=== PATIENT | female | born 1995 | race Caucasian/White ===

== ENCOUNTER 2020-02-25 04:53 | Emergency (ER) | payer OTHER ==
[~2020-02-25] VITALS: Ht 165.1 cm; Wt 59.0 kg
[2020-02-25 05:10] VITALS: BP 127/71
--- NOTE | 2020-02-25 05:10 | NUR ---
ED Nurse Note: pt ambulated into ed from home [place] and generalized body aches 8/ x 2 days with n/v. Pt HR elevated (114), temp 99.1. Other VS within normal limits. Pt states that she has stayed home in quarantine for last 2 months and denies others being sick at home. Pt aao x 4, ambulatory. Pt refused Iv line and blood draw, ERMD aware. Awaiting ERMD at bedside
[2020-02-25] MEDS ORDERED: ADVAIR 250-501 EACH INH (05:15)
[2020-02-25] MEDS ORDERED: MONTELUKAST SOD10 MG ORAL (05:15)
--- NOTE | 2020-02-25 05:20 | NUR ---
ED Nurse Note: xray at bedside. UA and COVID swab sent to lab.
[2020-02-25] MEDS ORDERED: Acetaminophen 500mg (ES) tab ORAL ONE (05:30)
--- NOTE | 2020-02-25 05:30 | NUR ---
ED Nurse Note: all medications administered. pt tolerated well no ss of distress noted. no adverse reactions noted.
--- NOTE | 2020-02-25 05:32 | NUR ---
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
[2020-02-25 05:49] LABS: APPEARANCE,URINE CLEAR; BILIRUBIN, URINE NEGATIVE (NEGATIVE); COLOR,URINE PALE YELLOW; GLUCOSE, URINE (UA) NEGATIVE (NEGATIVE); KETONES,URINE 1+ (NEGATIVE); LEUKOCYTE ESTERASE ,URINE NEGATIVE (NEGATIVE); NITRITE,URINE NEGATIVE (NEGATIVE); PH,URINE 6 (4.5-8.0); PROTEIN,URINE NEGATIVE (NEGATIVE); UROBILINOGEN,URINE NORMAL MG/DL (0.0-1.0)
--- NOTE | 2020-02-25 05:49 | Emergency Room Report ---
History of Present Illness General Chief Complaint: Generalized Weakness Source: Patient Present Illness HPI This is a 24-year-old female with history of asthma. She presents with chief complaint of fever chills and shortness of breath. Onset for last couple days. Coughing is nonproductive nature. Better with her inhaler. Fever is subjective. She felt chills and sweats at home. Also generalized body pain and weakness. Denies any sick contact. Nothing made it better. Nothing made it worse. Allergies: Coded Allergies: No Known Allergies (Unverified , 02/25/20) COVID-19 Screening Contact w/high risk pt: No Recent Travel to affected area: No Experienced COVID-19 symptoms?: No Patient History Past Medical History: see triage record, old chart reviewed, asthma Past Surgical History: none Pertinent Family History: none Social History: Denies: smoking Last Menstrual Period: 02-19-2020 Now: No Immunizations: other Reviewed Nursing Documentation: PMH: Agreed; PSxH: Agreed Nursing Documentation-PMH Hx Asthma: Yes Review of Systems Constitutional: Reports: chills, fever, weakness Eye: Denies: eye pain, blurred vision ENT: Denies: ear pain, nose congestion, throat swelling Respiratory: Reports: cough, shortness of breath Cardiovascular: Denies: chest pain, palpitations Gastrointestinal: Denies: abdominal pain, diarrhea, nausea, vomiting Musculoskeletal: Denies: back pain, joint pain Skin: Denies: rash Neurological: Denies: headache, numbness Endocrine: Denies: increased thirst, increased urine Hematologic/Lymphatic: Denies: easy bruising All Other Systems: negative except mentioned in HPI Physical Exam Vital Signs Date Time Temp Pulse Resp B/P (MAP) Pulse Ox O2 Delivery O2 Flow Rate FiO2 02/25/20 04:59 99.7 115 16 130/82 (98) 98 Room Air Vitals with low-grade fever Sp02 EP Interpretation: reviewed, normal General Appearance: well appearing, no apparent distress, alert Head: normocephalic, atraumatic Eyes: bilateral eye PERRL, bilateral eye EOMI ENT: hearing grossly normal, normal pharynx Neck: full range of motion, supple, no meningismus Respiratory: chest non-tender, lungs clear, normal breath sounds Cardiovascular #1: regular rate, rhythm, no murmur Gastrointestinal: normal bowel sounds, non tender, no mass, no organomegaly, no bruit, non-distended Musculoskeletal: back normal, normal range of motion, gait/station normal Psychiatric: mood/affect normal Medical Decision Making Diagnostic Impression: Primary Impression: Suspected COVID-19 virus infection ER Course Patient presents with fever chills and cough. Chest x-ray is unremarkable. EKG unremarkable. No prolonged QT interval. Symptoms consistent with possible COVID infection. Will discharge home. This patient was evaluated in the context of the global COVID-19 pandemic, which necessitated consideration that the patient might be at risk for infection with the [id number] virus that causes COVID-19. Institutional protocols and algorithms that pertain to the evaluation of patients at risk for COVID-19 and the state of rapid change based on information released by multiple regulatory bodies including the CDC and federal and state organizations. These policies and algorithms were followed during the patient' s care in the ED. EKG Diagnostic Results Rate: normal Rhythm: NSR ST Segments: no acute changes Rhythm Strip Diag. Results EP Interpretation: yes Rate: 110 Rhythm: NSR, no PVC's, no ectopy Chest X-Ray Diagnostic Results Chest X-Ray Diagnostic Results : Chest X-Ray Ordered: Yes # of Views/Limited/Complete: 1 View Indication: Shortness of Breath EP Interpretation: Yes Interpretation: no consolidation, no effusion, no pneumothorax, no acute cardiopulmonary disease Impression: No acute disease Electronically Signed by: Angel Lomas MD Last Vital Signs Date Time Temp Pulse Resp B/P (MAP) Pulse Ox O2 Delivery O2 Flow Rate FiO2 02/25/20 05:10 99.7 114 16 127/71 98 Room Air Status: improved Disposition: HOME, SELF-CARE Condition: Stable Scripts Hydroxychloroquine Sulfate (HYDROXYCHLOROQUINE SULFATE) 200 Mg Tablet 200 MG PO BID, #10 TAB Prov: Angel Lomas MD 02/25/20 Azithromycin* (ZITHROMAX*) 250 Mg Tablet 250 MG ORAL DAILY, #6 TAB 0 Refills Take two tables once daily for 1 day, then one tablet once daily for 4 days. Prov: Angel Lomas MD 02/25/20 Referrals: NOT CHOSEN [facility]/,REFERRING (PCP) Additional Instructions: Rest. Increase fluid. Take Tylenol for fever. Use your inhaler. Practice isolation. Follow-up with your doctor in 7 days. Return if symptoms worsen. Angel Lomas MD February 25, 2020 05:49
--- NOTE | 2020-02-25 05:50 | NUR ---
ED Nurse Note: lab called for update on UA d/t no results. ERMD notified.
[2020-02-25] MEDS ORDERED: ZITHROMAX250 MG ORAL (05:51)
[2020-02-25] MEDS ORDERED: HYDROXYCHLOROQ200 M1 PO (05:53)
--- NOTE | 2020-02-25 06:03 | NUR ---
ED Nurse Note: ERMD at bedside
[2020-02-25 06:06] VITALS: BP 122/72
--- NOTE | 2020-02-25 06:06 | NUR ---
ER DISCHARGE NOTE: Patient is cleared to be discharged home per ERMD, pt is aox4, 99% on room air, with stable vital signs. pt was given dc and prescription instructions, pt was able to verbalize understanding, pt id band removed. pt is able to ambulate with steady gait. pt took all belongings.
--- NOTE | 2020-02-25 07:30 | Diagnostic Imaging Report ---
EXAM: XR Chest, 1 View CLINICAL HISTORY: SOB TECHNIQUE: Frontal view of the chest. COMPARISON: None. FINDINGS: Lungs: The lungs are well aerated. No consolidative change. Pleural space: No pneumothorax. No pleural effusion. Heart: Cardiomediastinal silhouette unremarkable. Mediastinum: See above. Bones/joints: The ribs are grossly unremarkable. IMPRESSION: No active disease.
== END 2020-02-25 06:06 | disposition home or self-care (01) ==
LOC: EMR 05:24
DX: R50.9 Fever, unspecified (principal); R06.02 Shortness of breath; R05 Cough
CPT/HCPCS: 71045; 81001; 81025; 93005; 99283; U0002; 87635